=== PATIENT | female | born 1985 | race Caucasian/White ===

== ENCOUNTER 2018-02-26 09:09 | Day surgery (SDC) | payer OTHER ==
[~2018-02-26] VITALS: Ht 165.1 cm; Wt 94.0 kg
[~2018-02-26 09:09] MED LIST: BUPIVACAINE/PF 0.5% ONE; DIPHENHYDRAMINE 50 MG/ML, 1ML IVPush PRN; EPINEPHRINE 1 MG/ML, 1ML ONE; FENTANYL PF 100 MCG/2ML IV PRN; LABETALOL 5MG/ML, 20ML IV PRN; MEPERIDINE/PF 25MG/0.5ML IVPush PRN; OXYcodone 5 MG/5 ML ORAL.SOL UDC PO PRN; PREN1TAB60 PO; PROCHLORPERAZINE 5 MG/ML, 2ML IV PRN; hydrALAzine 20 MG/ML, 1ML IV PRN
[2018-02-26] MEDS ORDERED: MIDAZOLAM 1 MG/ML, 2ML ONE (09:55)
[2018-02-26] MEDS ORDERED: FENTANYL PF 250 MCG/5ML ONE (09:55)
[2018-02-26 10:07] VITALS: BP 112/75
[2018-02-26] MEDS ORDERED: LACTATED RINGERS 1,000 ML IV SCH (10:09)
[2018-02-26] MEDS ORDERED: GABAPENTIN 300 MG CAPSULE PO ONE (10:30)
[2018-02-26] MEDS ORDERED: ACETAMINOPHEN 500 MG TABLET PO ONE (10:30)
[2018-02-26 10:37] LABS: HCG UR SG 1.018 (1.003-1.030)
[2018-02-26] MEDS ORDERED: CLINDAMYCIN 150 MG/ML, 6ML ONE (10:42)
[2018-02-26] MEDS ORDERED: ONDANSETRON 2MG/ML, 2ML ONE (11:41)
[2018-02-26] MEDS ORDERED: ROCURONIUM 10MG/ML,5ML ONE (11:41)
[2018-02-26] MEDS ORDERED: DEXAMETHASONE 4 MG/ML, 1ML ONE (11:41)
[2018-02-26] MEDS ORDERED: CEFAZOLIN 1,000 MG ONE (11:41)
[2018-02-26] MEDS ORDERED: PROPOFOL 10 MG/ML, 20ML ONE (11:41)
[2018-02-26] MEDS ORDERED: GLYCOPYRROLATE 0.2MG/1ML, 5ML ONE (11:41)
[2018-02-26] MEDS ORDERED: SUCCINYLCHOLINE 20 MG/ML, 10ML ONE (11:41)
[2018-02-26] MEDS ORDERED: NEOSTIGMINE 1 MG/ML, 10ML ONE (11:41)
[2018-02-26] MEDS ORDERED: PROCHLORPERAZINE 5 MG/ML, 2ML ONE (12:41)
[2018-02-26] MEDS ORDERED: HYDROmorphone 2 MG/ML, 1ML ONE (12:45)
[2018-02-26] MEDS ORDERED: OXYcodone 5 MG/5 ML ORAL.SOL UDC ONE (12:46)
[2018-02-26] MEDS: HYDROmorphone 1 MG/ML, 1ML IV PRN ×3 (12:50→13:07)
== END 2018-02-26 16:15 | disposition home or self-care (01) ==
LOC: OUT 09:09
PROVIDERS: ATTEND Surgery
DX: E04.9 Nontoxic goiter, unspecified (principal); Z98.890 Other specified postprocedural states; Z87.891 Personal history of nicotine dependence; Z88.1 Allergy status to other antibiotic agents; Z88.8 Allergy status to other drugs, medicaments and biological substances
CPT/HCPCS: 60220; 81025; 88307; C1760; J0171; J0330; J0690; J0780; J1100; J1170; J2250; J2405; J2704; J2710; J3010; J3490; J7120